=== PATIENT | male | born 1980 | race Caucasian/White ===

== ENCOUNTER 2017-07-25 19:13 | Emergency (ER) | payer OTHER ==
[~2017-07-25] VITALS: Ht 180.3 cm; Wt 81.8 kg
[2017-07-25 22:23] LABS: INFLUENZA TYPE A NEGATIVE FOR TYPE A (NEGATIVE); INFLUENZA TYPE B NEGATIVE FOR TYPE B (NEGATIVE)
[2017-07-26 00:41] VITALS: BP 117/69
== END 2017-07-26 00:53 | disposition home or self-care (01) ==
LOC: EMS 19:26
DX: J00 Acute nasopharyngitis [common cold] (principal)
CPT/HCPCS: 87804; 99284